=== PATIENT | male | born 1950 | race Caucasian/White ===

== ENCOUNTER 2016-12-12 12:21 | Emergency (ER) | payer OTHER ==
[~2016-12-12] VITALS: Ht 167.6 cm; Wt 120.0 kg
[2016-12-12 12:21] VITALS: Ht 167.6 cm; Wt 120.0 kg
[~2016-12-12 12:21] MED LIST: ATEN50TA PO; BUSP10TA2 PO; ETOMIDATE 20 MG INJ ONE; HYDR-2059 PO; LAMI150T23 PO; NORV100 PO; OMEP20CA16 PO; ONDA4TAB8 PO; PARO40TA79 PO; RALT400T4 PO; ROCURONIUM 50 MG INJ ONE; SUCCINYLCHOLINE CHLORIDE 100 MG/5 ML SYG IV ONE
[2016-12-12 12:39] LABS: ABNORMAL IP MESSAGE 1; BASOPHILS % 0.3 % (0.0-2.0); EOSINOPHILS # 0.1 10^3/ul (0.0-0.5); HEMATOCRIT 34.2 % (42.0-52.0); HEMOGLOBIN 11.3 g/dl (14.0-18.0); LYMPHOCYTES % 39.7 % (15.0-51.0); MEAN CORPUSCULAR HEMOGLOBIN 28.3 pg (29.0-33.0); MEAN CORPUSCULAR VOLUME 85.7 fl (82.0-101.0); MEAN PLATELET VOLUME 11.4 fl (7.4-10.4); MONOCYTE # 0.4 10^3/ul (0.3-0.9); MONOCYTES % 3.2 % (0.0-11.0); NEUTROPHILS % 55.3 % (39.0-77.0); NUCLEATED RED BLOOD CELLS # 0.1 10^3/ul (0.0-0.0); NUCLEATED RED BLOOD CELLS% 0.4 /100WBC (0.0-0.0); PLATELET COUNT 87 10^3/UL (140-415); POSITIVE DIFF @See below; RED BLOOD COUNT 3.99 10^6/ul (4.70-6.10); RED CELL DISTRIBUTION WIDTH 17.2 % (11.5-14.5); WHITE BLOOD COUNT 12.5 10^3/ul (4.8-10.8)
[2016-12-12] MEDS ORDERED: VANCOMYCIN 1 GM (PMX) 250 ML IVPB STA (12:39)
[2016-12-12] MEDS ORDERED: CEFEPIME 2GM/50 ML (PMX) 50 ML IVPB STA (12:39)
[2016-12-12] MEDS ORDERED: SODIUM CHLORIDE 0.9% 1L BAG IV* STA (12:39)
[2016-12-12 12:51] LABS: INR 1.08; PARTIAL THROMBOPLASTIN TIME 23.9 Sec (25.0-35.0); PT RATIO 1.1
[2016-12-12 12:52] LABS: CALCIUM 8.7 mg/dl (8.4-10.2); CREATININE 1.69 mg/dl (0.61-1.24); POTASSIUM 4.2 mmol/L (3.5-5.1)
[2016-12-12 13:04] LABS: ADD UMIC YES; UR ASCORBIC ACID NEGATIVE (NEGATIVE); UR BACTERIA FEW /HPF (NONE SEEN); UR BILIRUBIN (Dip) NEGATIVE (NEGATIVE); UR BLOOD (Dip) 1+ mg/dL (NEGATIVE); UR CLARITY CLEAR (CLEAR); UR COLOR STRAW (YELLOW); UR GLUCOSE (Dip) NEGATIVE (NEGATIVE); UR KETONES (Dip) NEGATIVE (NEGATIVE); UR LEUKOCYTE ESTERASE (Dip) NEGATIVE Leu/ul (NEGATIVE); UR NITRITE (Dip) NEGATIVE (NEGATIVE); UR RBC 0 /HPF (0-5); UR SPECIFIC GRAVITY (Dip) 1.008 (1.003-1.030); UR TOTAL PROTEIN (Dip) NEGATIVE (NEGATIVE); UR UROBILINOGEN (Dip) NEGATIVE (NEGATIVE)
--- NOTE | 2016-12-12 13:06 | RADRPT ---
PROCEDURE: Noncontrast CT Head. CLINICAL INDICATION: Code stroke. Acute neurologic deficit. TECHNIQUE: Noncontrast CT of the head was obtained. The administered radiation dose was CTDI vol = 44.73 mGy, DLP = 720.23 mGy-cm. One or more of the following dose reduction techniques were used: Au tomated exposure control, Adjustment of the mA and/or kV according to patient size, or Use of iterat noe reconstruction technique. COMPARISON: There are no similar studies submitted for comparison. FINDINGS: There is minimal generalized cerebral volume loss. There is mild to moderate periventricular hypoatt enuation suggesting chronic microvascular ischemic changes. There are minimal vascular calcificatio ns within the intracranial carotid arteries. There is no loss of hanley-white differentiation to suggest acute territorial infarction. There is no acute intracranial hemorrhage. There is no mass effect. No midline shift is identified. The orbits are within normal limits. The paranasal sinuses are well aerated. No destructive osseous lesion is identified. IMPRESSION: 1. No loss of hanley-white differentiation to suggest acute territorial infarction. Consider CTA of t he head/neck or noncontrast MRI of the brain as clinically warranted. 2. No acute intracranial hemorrhage. 3. Mild generalized cerebral volume loss. 4. Mild to moderate chronic microvascular ischemic changes. Further findings as detailed above. These findings were discussed with [<Howard Vazquez>] on 12/12/2016 at 1:01 PM. RPTAT: PP .Harshad Castro MD, MD Date Time Electronically viewed and signed by .Harshad Castro MD, on 12/12/2016 13:05 .F/
[2016-12-12 13:14] LABS: ALBUMIN 3.8 g/dl (3.3-4.9); BILIRUBIN,INDIRECT 1.2 mg/dl (0-1.1); BILIRUBIN,TOTAL 1.2 mg/dl (0.2-1.3); TOTAL PROTEIN 6.6 g/dl (6.1-8.1)
[2016-12-12 13:26] LABS: TROPONIN-I 0.042 ng/ml (0.00-0.12)
--- NOTE | 2016-12-12 13:30 | RADRPT ---
PROCEDURE: XR Chest. CLINICAL INDICATION: Check endotracheal tube position. TECHNIQUE: Single frontal view. COMPARISON: None. FINDINGS: The endotracheal tube is in the right mainstem bronchus and should be retracted 2 cm. There is mild right basilar atelectasis. The lungs are otherwise clear. The heart is enlarged. There is no pleural effusion. There is no pneumothorax. IMPRESSION: 1. The endotracheal tube should be retracted 2 cm. 2. Mild right basilar atelectasis. 3. Cardiomegaly. 4. Otherwise normal chest x-ray. Call report: A call report of the findings was made to the respiratory technologist Domingo Das on 12/12/2016 at 1328 hours. RPTAT: QQ .Kenneth Reynoso MD, MD Date Time Electronically viewed and signed by .Kenneth Reynoso MD, on 12/12/2016 13:30 .R/
[2016-12-12 13:37] LABS: BARBITURATES Negative (NEGATIVE); BENZODIAZEPINES Negative (NEGATIVE); CANNABINOIDS Negative (NEGATIVE); COCAINE Negative (NEGATIVE); OPIATES Positive (NEGATIVE)
--- NOTE | 2016-12-12 13:58 | RADRPT ---
PROCEDURE: CT Chest, Abdomen and Pelvis without intravenous contrast CLINICAL INDICATION: Chest and abdominal pain. TECHNIQUE: CT of the chest, abdomen and pelvis was performed on a multidetector scanner without IV contrast. Coronal and sagittal images were reformatted from the axial data set. One or more of th e following dose reduction techniques were used: automated exposure control, adjustment of the mA an d/or kV according to patient size, use of iterative reconstruction technique. CTDI = 19.05 mGy. DLP = 1501.32 mGy-cm. COMPARISON: None available FINDINGS: CT chest: Endotracheal tube tip is in the right mainstem bronchus - repositioning is recommended. Patchy biba silar pulmonary consolidation is noted, greater on the right. No pleural effusion, pulmonary edema or pneumothorax is identified. No gross evidence of pulmonary nodule or mass is seen. The heart size is normal without pericardial effusion. There is no thoracic aortic aneurysm. No me diastinal, hilar, axillary or supraclavicular lymphadenopathy is identified. CT abdomen and pelvis: Cholelithiasis is seen without evidence for cholecystitis. The liver surface appears nodular, sera rning for cirrhosis. No gross evidence of focal hepatic mass is identified. Biliary tree, pancreas and adrenal glands are unremarkable. Splenomegaly is noted measuring 18 cm. There is moderate righ t renal atrophy. Bilateral renal cortical scarring is noted. Small bilateral nonobstructive renal c alculi are seen, without ureterolithiasis or obstructive uropathy. The stomach is grossly unremarka ble. The aorta is of normal caliber. Aortic vascular calcifications are present. There is no retroperit serra lymphadenopathy. The jses hepatis region is clear. No bowel obstruction, free intraperitoneal air or abscess is identified. The appendix is well visua lized and normal. There is no diverticulosis, diverticulitis or colitis. Peters catheter balloon is within the urinary bladder. No pelvic mass, free fluid or lymphadenopathy is identified. The surrounding osseous structures are remarkable for degenerative enthesopathy of the spine. No os teolytic or osteoblastic lesion is detected. There is chronic mild compression deformity of the L1 v ertebral body. IMPRESSION: 1. Endotracheal tube tip is in the right mainstem bronchus - repositioning is recommended. 2. Patchy bilateral pulmonary consolidation is noted, greater on the right, concerning for pneumoni a. 3. The liver surface is nodular, suggestive of cirrhosis. Splenomegaly is noted, which can be seen in the setting of portal hypertension. 4. Cholelithiasis is seen without evidence for cholecystitis. 5. Small bilateral nonobstructive renal calculi are noted, without ureterolithiasis or obstructive uropathy. There is chronic moderate atrophy of the right kidney. Bilateral renal cortical scarring is noted. 6. Peters catheter balloon is within the urinary bladder. RPTAT: HH .Drew Elizabeth MD, MD Date Time Electronically viewed and signed by .Drew Elizabeth MD, on 12/12/2016 13:58 .R/
--- NOTE | 2016-12-12 14:37 | ERA ---
ER Documentation Chief Complaint Date/Time DATE: 12/12/16 TIME: 14:17 Chief Complaint ALOC, apneic HPI This is a 66-year-old male with a past medical history of HIV, hepatitis B, cirrhosis, hepatic encephalopathy, stage III chronic kidney disease, thrombocytopenia who is presenting after being found down on the pavement outside by a bystander. It is unclear exactly how long he was down for. It is a significantly hot day. Upon dressage judge arrival, they felt that he had decreased strength on the right with right gaze preference. Upon arrival to the emergency department, the patient had a questionable grasp on the left, but he essentially did not follow any commands and had agonal breathing. He also felt very warm. History and physical was limited 2/2 unresponsiveness ROS Unable to obtain 2/2 AMS Medications Home Meds Unable to Obtain Active Prescriptions or Reported Meds Allergies Allergies: Coded Allergies: Unable to Assess (Verified Allergy, Severe, 12/12/16) PMhx/Soc Unable to assess fully 2/2 AMS. Records obtained from [facility] Hx: Unable to obtain (some records obtained from [facility]) Hx Neurological Disorder: Yes (Hepatic Encephalopathy) Hx Miscellaneous Medical Probl: Yes (HIV, HBV, CKD) Smoking Status: Unknown if ever smoked Physical Exam Vitals Vital Signs Date Time Temp Pulse Resp B/P Pulse Ox O2 Delivery O2 Flow Rate FiO2 12/12/16 19:16 99.7 83 20 91/72 100 Mechanical Ventilator 12/12/16 18:50 84 18 91/63 97 Mechanical Ventilator 12/12/16 18:40 84 20 80/66 96 Mechanical Ventilator 12/12/16 18:15 87 20 85/68 96 Mechanical Ventilator 12/12/16 17:28 99.6 91 21 94/77 96 Mechanical Ventilator Trach Collar 12/12/16 17:00 89 22 99 100 12/12/16 16:00 96 18 108/77 96 Mechanical Ventilator 12/12/16 15:20 101.4 108 24 133/76 100 Mechanical Ventilator 12/12/16 15:00 120 22 100 100 12/12/16 14:06 104.0 120 35 142/88 95 Mechanical Ventilator 12/12/16 12:40 145 22 97 100 12/12/16 12:38 139 18 125/67 100 Mechanical Ventilator 12/12/16 12:29 139 18 96/66 100 Mechanical Ventilator 12/12/16 12:22 Bag Valve Mask 12/12/16 12:21 107.9 140 96 Physical Exam Const: unresponsive, hyperthermic Head: Atraumatic Eyes: Normal Conjunctiva, PERRLA ENT: Normal External Ears, Nose. Sputum in airway. Neck: Full range of motion. ~ No meningismus. Resp: Coarse bilaterally, agonal breathing Cardio: Regular rhythm, no murmurs, tachycardia Abd: Soft, non tender, non distended, morbid obesity. Normal bowel sounds Skin: No petechiae or rashes, ecchymosis/purpura to chest and abdomen Back: No midline or flank tenderness Ext: No cyanosis, or edema, second degree go to LUE Neur: unresponsive, questionable follows commands to LUE, did not respond to painful stimulation in other extremities. Result Diagram: 12/12/16 1230 12/12/16 1230 Results 24 hrs Laboratory Tests Test 12/12/16 12:30 12/12/16 12:40 12/12/16 12:45 12/12/16 15:45 White Blood Count 12.510^3/ul Red Blood Count 3.9910^6/ul Hemoglobin 11.3g/dl Hematocrit 34.2% Mean Corpuscular Volume 85.7fl Mean Corpuscular Hemoglobin 28.3pg Mean Corpuscular Hemoglobin Concent 33.0g/dl Red Cell Distribution Width 17.2% Platelet Count 8710^3/UL Mean Platelet Volume 11.4fl Neutrophils % 55.3% Lymphocytes % 39.7% Monocytes % 3.2% Eosinophils % 1.0% Basophils % 0.3% Nucleated Red Blood Cells % 0.4/100WBC Neutrophils # (Manual) 6.910^3/ul Lymphocytes # 5.010^3/ul Monocytes # 0.410^3/ul Eosinophils # 0.110^3/ul Basophils # 0.010^3/ul Nucleated Red Blood Cells # 0.110^3/ul Prothrombin Time 14.0Sec Prothrombin Time Ratio 1.1 INR International Normalized Ratio 1.08 Activated Partial Thromboplast Time 23.9Sec Sodium Level 139mmol/L Potassium Level 4.2mmol/L Chloride Level 99mmol/L Carbon Dioxide Level 20mmol/L Anion Gap 24 Blood Urea Nitrogen 12mg/dl Creatinine 1.69mg/dl Glucose Level 246mg/dl Hemoglobin A1c 5.5% Calcium Level 8.7mg/dl Total Bilirubin 1.2mg/dl Direct Bilirubin 0.00mg/dl Indirect Bilirubin 1.2mg/dl Aspartate Amino Transf (AST/SGOT) 51IU/L Alanine Aminotransferase (ALT/SGPT) 53IU/L Alkaline Phosphatase 103IU/L Troponin I 0.042ng/ml Total Protein 6.6g/dl Albumin 3.8g/dl Urine Color STRAW Urine Clarity CLEAR Urine pH 7.0 Urine Specific [place] 1.008 Urine Ketones NEGATIVEmg/dL Urine Nitrite NEGATIVEmg/dL Urine Bilirubin NEGATIVEmg/dL Urine Urobilinogen NEGATIVEmg/dL Urine Leukocyte Esterase NEGATIVELeu/ul Urine Microscopic RBC 0/HPF Urine Microscopic WBC 0/HPF Urine Bacteria FEW/HPF Urine Hemoglobin 1+mg/dL Urine Glucose NEGATIVEmg/dL Urine Total Protein NEGATIVEmg/dl Urine Opiates Screen Positive Urine Barbiturates Negative Urine Amphetamines Screen Negative Urine Benzodiazepines Screen Negative Urine Cocaine Screen Negative Urine Cannabinoids Negative Blood Gas Specimen Source Blood arterial Arterial Blood Date Drawn 12/12/2016 2:18:35 PM Arterial Blood pH (Temp corrected) 7.297 Arterial Blood pCO2 (Temp correct) 45.9mmhg Arterial Blood pO2 (Temp corrected) 100.8mmHG Arterial Blood HCO3 21.9mmol/L Arterial Blood Base Excess -4.5mmol/L Arterial Blood Oxygen Saturation 96.9mmHG Adis Test ACCEPTAB Arterial Blood Gas Puncture Site Right Radial Arterial Blood Carboxyhemoglobin 0.3% Arterial Blood Methemoglobin 0.5% Blood Gas A-a O2 Differential 566.3mmHg Oxyhemoglobin Percent 96.1% Total Hemoglobin 12.1g/dl Blood Gas Temperature 37.0C Blood Gas Respiration Rate 18.0 Blood Gas Actual Respiration Rate 18 Blood Gas Modality VENT - AC FiO2 100.0% Blood Gas Tidal Volume 550.0mL Blood Gas Notified Whom MDA Blood Gas Notified Time 12/12/2016 2:24:06 PM Lactic Acid Level 3.5mmol/L Creatine Kinase 134IU/L Test 12/12/16 15:48 12/12/16 17:30 Blood Gas Specimen Source Blood arterial Arterial Blood Date Drawn 12/12/2016 4:28:24 PM Arterial Blood pH (Temp corrected) 7.331 Arterial Blood pCO2 (Temp correct) 40.7mmhg Arterial Blood pO2 (Temp corrected) 76.7mmHG Arterial Blood HCO3 21.0mmol/L Arterial Blood Base Excess -4.6mmol/L Arterial Blood Oxygen Saturation 94.2mmHG Adis Test ACCEPTAB Arterial Blood Gas Puncture Site Right Radial Arterial Blood Carboxyhemoglobin 0.2% Arterial Blood Methemoglobin 0.4% Blood Gas A-a O2 Differential 234.0mmHg Oxyhemoglobin Percent 93.6% Total Hemoglobin 11.4g/dl Blood Gas Temperature 37.0C Blood Gas Respiration Rate 18.0 Blood Gas Actual Respiration Rate 18 Blood Gas Modality VENT - AC FiO2 50.0% Blood Gas Tidal Volume 550.0mL Blood Gas Notified Whom MDA Blood Gas Notified Time 12/12/2016 4:33:56 PM Lactic Acid Level 3.8mmol/L Ammonia < 9umol/l Ethyl Alcohol Level < 10.0mg/dl Current Medications Medications (Trade) Dose Ordered Sig/Stone Route PRN Reason Start Time Stop Time Status Last Admin Dose Admin Sodium Chloride 3000 ml 3,000 ml BOLUS OVER 2 HOURS STAT IV* 12/12/16 12:39 12/12/16 12:43 DC 12/12/16 12:39 Vancomycin HCl 250 ml @ 125 mls/hr ONCE STAT IVPB 12/12/16 12:39 12/12/16 14:38 DC 12/12/16 12:39 Cefepime HCl (Maxipime 2gm/50 ml (Pmx)) 50 ml @ 100 mls/hr ONCE STAT IVPB 12/12/16 12:39 12/12/16 13:08 DC 12/12/16 12:39 Fentanyl (Sublimaze) 50 mcg ONCE ONCE IV 12/12/16 15:00 12/12/16 15:02 DC 12/12/16 14:58 Acetaminophen (Tylenol Supp) 650 mg ONCE ONCE ME 12/12/16 15:00 12/12/16 15:02 DC 12/12/16 14:58 Fentanyl 50 mcg 50 mcg ONCE ONCE IV 12/12/16 16:00 12/12/16 16:01 DC 12/12/16 16:09 Fentanyl 100 ml @ 2.5 mls/hr TITRATE IV 12/12/16 16:00 12/12/16 16:25 Sodium Chloride (NS) 1,000 ml @ 1,000 mls/hr Q1H ONCE IV 12/12/16 19:00 12/12/16 19:59 12/12/16 18:49 Procedures/MDM The patient presented tachycardic, mildly hypotensive, febrile, unresponsive with agonal breathing. He also had significant hyperthermia, temp 107.9F rectal upon arrival. It is unclear why he syncopized, but he was found down on the pavement during a hot day. Differential includes cardiac and neurologic etiologies, infection, heat stroke. The patient had second degree go on his right arm secondary to the heat of the pavement. He has had bruising to his chest of unclear etiology. Given his HIV status and significant hyperthermia, there has been concerns of an infectious etiology such as meningitis. Precautions will be taken in the ER. Given his agonal breathing with sputum in the airway, unresponsiveness to pain, I placed his GCS at 4. The decision was made to intubate the patient immediately. Endotracheal Intubation by me: Pre assessment performed. Pre-oxygenation performed with 100% oxygen RSI: Performed w/o complication or hypoxic events. Medications as ordered. Blade: Mac 4 ET Tube: 7.5 cm Depth: 22 cm at the lip Intubation confirmed by colorimetric CO2, equal breath sounds, quiet over the stomach. Chest X-ray 1V Interpreted by me: ET tube 2 cm below the jose. Normal soft tissue, No pneumothorax. ETT retracted 2cm. Given his presentation, there were concerns of stroke versus sepsis. The patient 's CT imaging was also obtained and reviewed by myself and the radiologist. It is described below: CT TAP - IMPRESSION: 1. Endotracheal tube tip is in the right mainstem bronchus - repositioning is recommended. 2. Patchy bilateral pulmonary consolidation is noted, greater on the right, concerning for pneumonia. 3. The liver surface is nodular, suggestive of cirrhosis. Splenomegaly is noted, which can be seen in the setting of portal hypertension. 4. Cholelithiasis is seen without evidence for cholecystitis. 5. Small bilateral nonobstructive renal calculi are noted, without ureterolithiasis or obstructive uropathy. There is chronic moderate atrophy of the right kidney. Bilateral renal cortical scarring is noted. 6. Peters catheter balloon is within the urinary bladder. .Drew Elizabeth MD, MD Date Time Electronically viewed and signed by .Drew Elziabeth MD, MD on 12/12/2016 13: 58 CT head - IMPRESSION: 1. No loss of hanley-white differentiation to suggest acute territorial infarction. Consider CTA of the head/neck or noncontrast MRI of the brain as clinically warranted. 2. No acute intracranial hemorrhage. 3. Mild generalized cerebral volume loss. 4. Mild to moderate chronic microvascular ischemic changes. These findings were discussed with [<Raeann Vazquez>] on 12/12/2016 at 1:01 PM. .Harshad Castro MD, MD Date Time Electronically viewed and signed by .Harshad Castro MD, MD on 12/12/2016 13:[address] imaging was reassuring. The patient does not appear to have any anoxic brain injury or signs of stroke. There is no obvious pathology within the chest, abdomen or pelvis. Given the possibility of sepsis, the sepsis protocol was also followed. Patient' s infectious symptoms have not stabilized and the patient is at risk of rapid decompensation. The patient will be admitted for careful hydration, antibiotic therapy of vanc and cefepime, and infectious source control. Severe Sepsis criteria: Infectious source: Unclear End organ damage indicated by: Lactate > 2.0 mmol/L Hypotension SBP < 90 Acute Resp Failure sat < 92% w/o oxygen Sepsis Management: Time of recognition of sepsis: Upon arrival Within 3 hours of recognition: Blood cultures x 2 before broad-spectrum antibiotics: Yes 30 ml/kg NS bolus Completed Initial lactate 3.5 Repeat lactate 3.8 Given his hypotension, a central line was placed by me. Patient consented, sterilely draped, full prep, gown, glove, mask, time out performed. Anesthesia: None Location: Right femoral vein Device: Multiple lumen Technique: Seldinger technique. Secured with suture. Results: Venous return from all ports with easy saline flush. No complications. Guide wire retrieved and disposed of. ED Ultrasound: Central line placed by me using concurrent ultrasound guidance. Real time image archived in the medical record confirms vascular anatomy. An EKG was obtained. EKG read by me: Rate/Rhythm: Regular rhythm, sinus tachycardia at 144 Intervals: QRS prolonged, ME normal, QTc prlonged, RBBB Impression: No evidence of acute ischemia Blood work was obtained and reviewed. The patient has a mild leukocytosis at 12.5, which could represent infection, but it could also potentially be reactive 2/2 the stress of the His hyperthermic event. The patient does not have an anemia that requires emergent treatment. The patient's CMP demonstrates an AK I, hyperglycemia, mild transaminitis, no electrolyte abnormalities. The patient's potassium and calcium are normal. Upon arrival, there were concerns of peaked T waves, and calcium was given prior to this result. The patient's lactic acid is elevated. This may also be related to the stress of the event. A repeat was completed after 30 cc kilo of normal saline was done, and it actually went up to 3.8. There was an elevated troponin , but patient's creatinine is elevated. This will need to be trended. The patient was cooled externally with ice bags, tylenol ME, and cold NS. Temp came down to <100F. After correction of his temperature, the patient's heart rate improved significantly. Repeat EKG was performed. EKG read by me: Rate/Rhythm: Regular rate and rhythm at a rate of 79 Intervals: Wide QRS, RBBB, normal ME, normal QTc [place]: Normal Impression: No evidence of acute ischemia or arrhythmia Additionally, after correction of his temperature, his mentation significantly improved. The patient woke up and could follow commands. I would place his GCS at this time at 11T. He has no focal deficits. He doesn't remember what happened today, but he does not endorse recent infectious symptoms. He denies CP. Given the lack of etiology of his lactic acid and overall presentation, I am hesitant to extubate him in the ER. The patient requires ICU level care. In speaking with [facility], they wanted to send a critical care team with a critical care physician. As long as the patient is transported with a physician, I feel the patient is appropriate for transfer. Accepting Care Team Current data and ongoing care discussed. Admitting Physician: Maria Esther Arreola at [facility] Outstanding Data: Culture results Critical Care: Critical care time 35 minutes excluding all billable procedures Emergent fluid management while maintaining close respiratory support. Provision of immediate and broad-spectrum antibiotic therapy. Simultaneous assessment for possible sources in order to direct targeted therapy. Consideration for invasive and chemical support to prevent cardiopulmonary collapse. Departure Diagnosis: Primary Impression: Altered level of consciousness Additional Impressions: Burn Respiratory failure Qualified Code: J96.00 - Acute respiratory failure, unspecified whether with hypoxia or hypercapnia SIRS (systemic inflammatory response syndrome) Condition: Critical RAEANN VAZQUEZ MD Dec 12, 2016 14:29
[2016-12-12] MEDS ORDERED: ACETAMINOPHEN 650 MG SUPP PR ONE (15:00)
[2016-12-12] MEDS ORDERED: FENTAnyl 50 MCG/ML VIAL IV ONE ×3 (15:00→20:30)
[2016-12-12 15:16] LABS: AADO2 Arterial 566.3 mmHg (7.0-24.0); Allen Test ACCEPTAB; Arterial Base Excess -4.5 mmol/L (-3.0-3); Arterial COHb 0.3 % (0.0-3.0); Arterial Fraction of Oxyhgb 96.1 % (93.0-99.0); Arterial HCO3 21.9 mmol/L (22.0-26.0); Arterial MetHb 0.5 % (0.0-1.5); Arterial Total Hemglobin 12.1 g/dl (12.0-18.0); MODE VENT - AC
[2016-12-12] MEDS ORDERED: FENTAnyl (DRIP) 1000 mcg/100mL 100 ML IV SCH (16:00)
[2016-12-12 16:34] LABS: Allen Test ACCEPTAB; Arterial Base Excess -4.6 mmol/L (-3.0-3); Arterial COHb 0.2 % (0.0-3.0); Arterial Fraction of Oxyhgb 93.6 % (93.0-99.0); Arterial MetHb 0.4 % (0.0-1.5); Arterial Total Hemglobin 11.4 g/dl (12.0-18.0); MODE VENT - AC
[2016-12-12] MEDS ORDERED: SOD CHLORIDE 0.9% 1,000 ML IV ONE (19:00)
[2016-12-12 21:02] VITALS: TEMP 99
[2016-12-12] MEDS ORDERED: NORepinephrine 8MG/250 ML (PMX 250 ML ONE (21:21)
[2016-12-12] MEDS ORDERED: NORepinephrine 8MG/250 ML (PMX 250 ML IV SCH (21:30)
[2016-12-12 21:39] VITALS: BP 94/74; PULSE 85; RESP 28
== END 2016-12-12 21:39 | disposition short-term general hospital (02) ==
LOC: E/R 12:21 → MERGE 12:21 → E/R 21:39
DX: R40.4 Transient alteration of awareness (principal); J96.00 Acute respiratory failure, unspecified whether with hypoxia or hypercapnia; T22.231A Burn of second degree of right upper arm, initial encounter; R65.10 Systemic inflammatory response syndrome (SIRS) of non-infectious origin without acute organ dysfunction; T67.0XXA Heatstroke and sunstroke, initial encounter; R40.2112 Coma scale, eyes open, never, at arrival to emergency department; R40.2212 Coma scale, best verbal response, none, at arrival to emergency department; N18.3 Chronic kidney disease, stage 3 (moderate); R07.9 Chest pain, unspecified; X19.XXXA Contact with other heat and hot substances, initial encounter; Y92.89 Other specified places as the place of occurrence of the external cause
CPT/HCPCS: 31500; 36556; 36600; 70450; 71010; 71250; 74176; 76937; 80048; 80076; 80306; 80307; 81001; 82140; 82550; 82803; 83036; 83605; 84484; 85025; 85610; 85730; 87040; 87086; 93005; 94002; 96361; 96365; 96366; 96368; 96375; 99291; J0692; J3010; J3370; J7030; J7999